=== PATIENT | male | born 1970 | race Caucasian/White ===

== ENCOUNTER 2017-05-25 17:46 | Emergency (ER) | payer BC, OTHER ==
[2017-05-25] MEDS ORDERED: Aspirin 81 MG Tab.Chew PO ONE (18:41)
[2017-05-25] MEDS ORDERED: Sodium Chloride 0.9% 1,000 ML IV ONE (18:41)
--- NOTE | 2017-05-25 18:47 | EDM.PDOC ---
ED HPI GENERAL MEDICAL PROBLEM - General Chief Complaint: General Stated Complaint: PT HAS HIGH BLOOD PRESSURE Time Seen by Provider: 05/25/17 18:35 Source of Information: Reports: Patient History Limitations: Reports: No Limitations - History of Present Illness INITIAL COMMENTS - FREE TEXT/NARRATIVE: HISTORY AND PHYSICAL: History of present illness: [Patient comes to the emergency room complaining of not feeling well. States that he was diagnosed with influenza one week ago. He followed up at the urgent care clinic this morning and was diagnosed with bronchitis. He was prescribed azithromycin, prednisone, albuterol inhaler. He has not started any of these medications yet. This afternoon he started feeling strange and presented to the ER for evaluation. He describes a burning sensation in his left chest, some shortness of breath and difficulty breathing as well as continued cough and feeling feverish. He noticed that his blood pressure is a little higher than usual this afternoon. History of hypertension and hyperlipidemia. He has not missed any doses of his medications other than his evening dose of carvedilol. ] Review of systems: As per history of present illness and below otherwise all systems reviewed and negative. Past medical history: As per history of present illness and as reviewed below otherwise noncontributory. Surgical history: As per history of present illness and as reviewed below otherwise noncontributory. Social history: No reported history of drug or alcohol abuse. Family history: As per history of present illness and as reviewed below otherwise noncontributory. Physical exam: Gen.: Well-developed well-nourished male in no acute distress. Vital signs are reviewed by me HEENT: Atraumatic, normocephalic. Oral mucous membranes are pink and moist. Throat is clear. Neck supple no lymphadenopathy. Lungs: Clear to auscultation, breath sounds equal bilaterally. Heart: S1S2, regular rate and rhythm., negative for clicks, rubs, or JVD. Abdomen: Soft, nondistended, nontender. Pelvis: Stable nontender. Genitourinary: Deferred. Rectal: Deferred. Extremities: Atraumatic, no swelling or cyanosis to feet or lower legs. Neurovascular unremarkable. Neuro: Awake, alert, oriented. Motor and sensory unremarkable throughout. Exam nonfocal. Diagnostics: [CBC, CMP, troponin, PT/INR/PTT, EKG, chest x-ray] Therapeutics: [Aspirin 324 mg by mouth, Levaquin 750 mg IV, clonidine 0.1 mg by mouth] Impression: [bronchitis] Plan: [Discussed with patient that his lab results, EKG and chest x-ray are completely normal. he is given Levaquin 750 mg the ER since he has not started his oral antibiotic yet. Clonidine given in ER. Blood pressure decreased modestly. Patient will be discharged home with strict return precautions reviewed. Take evening dose of carvedilol when you get home. Start antibiotics tomorrow. Referral given to establish with local PCP. Definitive disposition and diagnosis as appropriate pending reevaluation and review of above. 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 - Related Data Allergies Allergy/AdvReac Type Severity Reaction Status Date / Time No Known Allergies Allergy Verified 05/20/14 18:49 Home Meds: Home Meds Carvedilol 6.25 mg PO BID 05/25/17 [History] atorvaSTATin [Lipitor] 10 mg PO DAILY 05/25/17 [History] Past Medical History - Past Health History Medical/Surgical History: Denies Medical/Surgical History Cardiovascular History: Reports: High Cholesterol, Hypertension - Infectious Disease History Infectious Disease History: Reports: Chicken Pox, Measles, Mumps Social & Family History - Family History Family Medical History: Noncontributory - Tobacco Use Smoking Status *Q: Former Smoker Years of Tobacco use: 25 Used Tobacco, but Quit: Yes Month Tobacco Last Used: 2008 Second Hand Smoke Exposure: No - Caffeine Use Caffeine Use: Reports: Coffee - Alcohol Use Days Per Week of Alcohol Use: 4 Number of Drinks Per Day: 6 Total Drinks Per Week: 24 - Recreational Drug Use Recreational Drug Use: No ED ROS GENERAL - Review of Systems Review Of Systems: ROS reveals no pertinent complaints other than HPI. ED EXAM, GENERAL - Physical Exam Exam: See Below Course - Vital Signs Last Recorded V/S: Last Vital Signs Temp 98 F 05/25/17 19:25 Pulse 93 05/25/17 21:31 Resp 18 05/25/17 21:31 BP 139/105 H 05/25/17 21:31 Pulse Ox 96 05/25/17 21:31 - Orders/Labs/Meds Orders: Active Orders 24 hr Category Date Time Status EKG Documentation Completion [RC] STAT Care 05/25/17 18:26 Active Chest 2V [CR] Stat Exams 05/25/17 18:41 Taken Levofloxacin/Dextrose 5%-Water [Levaquin in D5W 750 MG/ Med 05/25/17 20:19 Active 150 ML] 750 mg Premix Bag 1 bag IV ONETIME Medication Orders Levofloxacin/Dextrose 750 mg/ (Premix) 150 mls @ 100 mls/hr IV ONETIME ONE Stop: 05/25/17 21:48 Last Admin: 05/25/17 20:34 Dose: 100 mls/hr Labs: Laboratory Tests 05/25/17 05/25/17 05/25/17 Range/Units 18:53 18:53 18:53 WBC 6.31 (4.0-11.0) K/uL RBC 5.58 (4.50-5.90) M/uL Hgb 18.6 H (13.0-17.0) g/dL Hct 49.8 (38.0-50.0) % MCV 89.2 (80.0-98.0) fL MCH 33.3 H (27.0-32.0) pg MCHC 37.3 H (31.0-37.0) g/dL RDW Std Deviation 40.3 (28.0-62.0) fl RDW Coeff of Shaquille 13 (11.0-15.0) % Plt Count 87 L (150-400) K/uL MPV 10.60 (7.40-12.00) fL Neut % (Auto) 66.4 (48.0-80.0) % Lymph % (Auto) 20.0 (16.0-40.0) % [place] % (Auto) 13.2 (0.0-15.0) % Eos % (Auto) 0.2 (0.0-7.0) % Baso % (Auto) 0.2 (0.0-1.5) % Neut # (Auto) 4.2 (1.4-5.7) K/uL Lymph # (Auto) 1.3 (0.6-2.4) K/uL [place] # (Auto) 0.8 (0.0-0.8) K/uL Eos # (Auto) 0.0 (0.0-0.7) K/uL Baso # (Auto) 0.0 (0.0-0.1) K/uL Nucleated RBC % 0.0 /100WBC Nucleated RBCs # 0 K/uL INR 1.00 (0.86-1.11) Sodium 138 (136-146) mmol/L Potassium 4.0 (3.5-5.1) mmol/L Chloride 100 (98-110) mmol/L Carbon Dioxide 24 (21-31) mmol/L BUN 12 (6.0-23.0) mg/dL Creatinine 0.8 (0.6-1.5) mg/dL Est Cr Clr Drug Dosing 109.25 mL/min Estimated GFR (MDRD) > 60.0 ml/min Glucose 102 (60-110) mg/dL Calcium 9.8 (8.8-10.8) mg/dL Total Bilirubin 1.5 (0.1-1.5) mg/dL AST 56 H (5-40) IU/L ALT 68 H (8-54) IU/L Alkaline Phosphatase 98 (40-150) Troponin I < 0.10 (0.0-0.29) NG/ML Total Protein 6.8 (6.0-8.0) g/dL Albumin 4.1 (3.5-5.0) g/dL Globulin 2.7 (2.0-3.5) g/dL Albumin/Globulin Ratio 1.5 (1.3-2.8) Urine Color Urine Appearance Urine pH (5.0-8.0) Ur Specific [place] (1.001-1.035) Urine Protein (NEGATIVE) mg/dL Urine Glucose (UA) (NEGATIVE) mg/dL Urine Ketones (NEGATIVE) mg/dL Urine Occult Blood (NEGATIVE) Urine Nitrite (NEGATIVE) Urine Bilirubin (NEGATIVE) Urine Ictotest Urine Urobilinogen (<2.0) EU/dL Ur Leukocyte Esterase (NEGATIVE) Urine RBC (0-2/HPF) Urine WBC (0-5/HPF) Ur Epithelial Cells (NONE-FEW) Urine Bacteria (NEGATIVE) 05/25/17 Range/Units 19:55 WBC (4.0-11.0) K/uL RBC (4.50-5.90) M/uL Hgb (13.0-17.0) g/dL Hct (38.0-50.0) % MCV (80.0-98.0) fL MCH (27.0-32.0) pg MCHC (31.0-37.0) g/dL RDW Std Deviation (28.0-62.0) fl RDW Coeff of Shaquille (11.0-15.0) % Plt Count (150-400) K/uL MPV (7.40-12.00) fL Neut % (Auto) (48.0-80.0) % Lymph % (Auto) (16.0-40.0) % [place] % (Auto) (0.0-15.0) % Eos % (Auto) (0.0-7.0) % Baso % (Auto) (0.0-1.5) % Neut # (Auto) (1.4-5.7) K/uL Lymph # (Auto) (0.6-2.4) K/uL [place] # (Auto) (0.0-0.8) K/uL Eos # (Auto) (0.0-0.7) K/uL Baso # (Auto) (0.0-0.1) K/uL Nucleated RBC % /100WBC Nucleated RBCs # K/uL INR (0.86-1.11) Sodium (136-146) mmol/L Potassium (3.5-5.1) mmol/L Chloride (98-110) mmol/L Carbon Dioxide (21-31) mmol/L BUN (6.0-23.0) mg/dL Creatinine (0.6-1.5) mg/dL Est Cr Clr Drug Dosing mL/min Estimated GFR (MDRD) ml/min Glucose (60-110) mg/dL Calcium (8.8-10.8) mg/dL Total Bilirubin (0.1-1.5) mg/dL AST (5-40) IU/L ALT (8-54) IU/L Alkaline Phosphatase (40-150) Troponin I (0.0-0.29) NG/ML Total Protein (6.0-8.0) g/dL Albumin (3.5-5.0) g/dL Globulin (2.0-3.5) g/dL Albumin/Globulin Ratio (1.3-2.8) Urine Color YELLOW Urine Appearance CLEAR Urine pH 7.5 (5.0-8.0) Ur Specific [place] 1.010 (1.001-1.035) Urine Protein TRACE (NEGATIVE) mg/dL Urine Glucose (UA) NEGATIVE (NEGATIVE) mg/dL Urine Ketones 40 H (NEGATIVE) mg/dL Urine Occult Blood NEGATIVE (NEGATIVE) Urine Nitrite NEGATIVE (NEGATIVE) Urine Bilirubin SMALL H (NEGATIVE) Urine Ictotest NEGATIVE Urine Urobilinogen 0.2 (<2.0) EU/dL Ur Leukocyte Esterase NEGATIVE (NEGATIVE) Urine RBC 0-1 (0-2/HPF) Urine WBC 0-2 (0-5/HPF) Ur Epithelial Cells RARE (NONE-FEW) Urine Bacteria FEW (NEGATIVE) Meds: Medications Generic Name Dose Route Start Last Admin Trade Name Freq PRN Reason Stop Dose Admin Levofloxacin/Dextrose 750 mg/ 150 mls @ 100 mls/hr 05/25/17 20:19 05/25/17 20 :34 Premix IV 05/25/17 21:48 100 mls/hr ONETIME ONE Administration Discontinued Medications Generic Name Dose Route Start Last Admin Trade Name Freq PRN Reason Stop Dose Admin Aspirin 324 mg 05/25/17 18:41 05/25/17 18:49 Aspirin PO 05/25/17 18:42 324 mg ONETIME ONE Administration Clonidine HCl 0.1 mg 05/25/17 20:19 05/25/17 20:33 Catapres PO 05/25/17 20:20 0.1 mg ONETIME ONE Administration Sodium Chloride 1,000 mls @ 999 mls/hr 05/25/17 18:41 05/25/17 18:49 Normal Saline IV 05/25/17 19:41 999 mls/hr .Bolus ONE Administration Departure - Departure Time of Disposition: 21:30 Disposition: Home, Self-Care 01 Condition: Good Clinical Impression: Bronchitis, Hypertension - Discharge Information Referrals: PCP,None [Primary Care Provider] - Nathen Nicole MD [Resident] - Forms: ED Department Discharge Additional Instructions: The following information is given to patients seen in the emergency department who are being discharged to home. This information is to outline your options for follow-up care. We provide all patients seen in our emergency department with a follow-up referral. The need for follow-up, as well as the timing and circumstances, are variable depending upon the specifics of your emergency department visit. If you don't have a primary care physician on staff, we will provide you with a referral. We always advise you to contact your personal physician following an emergency department visit to inform them of the circumstance of the visit and for follow-up with them and/or the need for any referrals to a consulting specialist. The emergency department will also refer you to a specialist when appropriate. This referral assures that you have the opportunity for follow-up care with a specialist. All of these measure are taken in an effort to provide you with optimal care, which includes your follow-up. Under all circumstances we always encourage you to contact your private physician who remains a resource for coordinating your care. When calling for follow-up care, please make the office aware that this follow-up is from your recent emergency room visit. If for any reason you are refused follow-up, please contact the [facility] emergency department at and asked to speak to the emergency department charge nurse. [facility] [address] [place] [id number] Follow-up at the clinic listed above in 48-72 hours to follow-up on your blood pressure and bronchitis. Call tomorrow to schedule this appointment. Alternate Tylenol with ibuprofen as needed for discomfort. Take medications as prescribed. Take your second dose of BP medication when you get home tonight. Return to ER as needed as discussed. - My Orders Last 24 Hours: My Active Orders 05/25/17 18:26 EKG Documentation Completion [RC] STAT 05/25/17 18:41 Chest 2V [CR] Stat 05/25/17 20:19 Levofloxacin/Dextrose 5%-Water [Levaquin in D5W 750 MG/150 ML] 750 mg Premix Bag 1 bag IV ONETIME - Assessment/Plan Last 24 Hours: My Active Orders 05/25/17 18:26 EKG Documentation Completion [RC] STAT 05/25/17 18:41 Chest 2V [CR] Stat 05/25/17 20:19 Levofloxacin/Dextrose 5%-Water [Levaquin in D5W 750 MG/150 ML] 750 mg Premix Bag 1 bag IV ONETIME
[2017-05-25 19:22] LABS: CHLORIDE,CL 100 mmol/L (98-110); SODIUM,NA 138 mmol/L (136-146)
[2017-05-25] MEDS ORDERED: cloNIDine 0.1 MG Tab PO ONE (20:19)
[2017-05-25] MEDS ORDERED: Levofloxacin/Dextrose 5%-Water 750 MG in Premix Bag 1 BAG IV ONE (20:19)
[2017-05-25 22:30] VITALS: BP 140/99
--- NOTE | 2017-05-26 14:47 | CR ---
EXAM DATE: 05/25/17 PATIENT'S AGE: 46 Patient: SRIKANTH YEPEZ Facility: [place], [place] Site . Site : [id number] Study: XRay Chest [id number] 7:26:18 PM Ordering Physician: Doctor Cooper Final Report: INDICATIONS: Cough x1 week. High blood pressure. TECHNIQUE: Chest 2 view. COMPARISON: None FINDINGS: No pneumothorax or pleural effusion. Lungs are clear. Cardiac and mediastinal contours are within normal limits. Upper abdomen and osseous structures show no acute abnormality. IMPRESSION: No evidence of acute cardiopulmonary disease. Dictated by Aden Stanley MD @ 05/25/2017 7:58:49 PM Dictated by: Aden Stanley MD @ 05/25/2017 19:58:59 (Electronic Signature) Report Signed by Proxy. [facility]
== END 2017-05-25 22:08 | disposition home or self-care (01) ==
LOC: MW.ED 17:46
DX: J40 Bronchitis, not specified as acute or chronic (principal); I10 Essential (primary) hypertension; E78.00 Pure hypercholesterolemia, unspecified; Z87.891 Personal history of nicotine dependence; Z79.899 Other long term (current) drug therapy
CPT/HCPCS: 36415; 71046; 80053; 81001; 84484; 85025; 85610; 93005; 96372; 99284; A9270; J1956; J7040

== ENCOUNTER 2017-10-02 13:46 | Emergency (ER) | payer OTHER ==
[2017-10-02] MEDS ORDERED: Ketorolac 60 MG/2 ML SDV IM ONE (14:19)
--- NOTE | 2017-10-02 14:27 | EDM.PDOC ---
ED HPI GENERAL MEDICAL PROBLEM - General Chief Complaint: Back Pain or Injury Stated Complaint: BACK PAIN Time Seen by Provider: 10/02/17 14:03 - History of Present Illness INITIAL COMMENTS - FREE TEXT/NARRATIVE: HISTORY AND PHYSICAL: History of present illness: The patient is a 47-year-old male with a history of hypertension and presents with complaints of back pain that started 4 days ago when he picked up a very low weight, 10 pounds, object and turned in a funny way and felt immediate lumbar back pain. The patient tells me at the little bit more on the left side but it is bilateral and he has had kidney stones in the past but this does not feel like a kidney stone. The patient says that he has no systemic complaints of dysuria hematuria flank pain abdominal pain nausea vomiting chest pain or shortness of breath. He has no weakness numbness or tingling in his lower extremities. He has no bowel or bladder disturbances. The pain does not radiate to his legs or to his butt. Patient has taken Advil and Aleve only for pain and has seen the chiropractor the last 4 days with some relief of the pain but it is still a very high level. He has missed work the last 2 days because of the discomfort and he says position changes are much worse than staying still. He feels most comfortable standing. He says if he moves or turns a certain way the pain suddenly shoot up in intensity. The patient lives in [place] but is here working and has no plans to go back home until March. He has no local clinic follow-up. Patient denies any falls or direct trauma to his back. Review of systems: As per history of present illness and below otherwise all systems reviewed and negative. Past medical history: As per history of present illness and as reviewed below otherwise noncontributory. Surgical history: As per history of present illness and as reviewed below otherwise noncontributory. Social history: No reported history of drug or alcohol abuse. Family history: As per history of present illness and as reviewed below otherwise noncontributory. Physical exam: General: Well-developed well-nourished overweight man was nontoxic and looks uncomfortable with position changes in the ED and is most comfortable standing up. He ambulates easily without any distress. Vital signs are noted by me. HEENT: Atraumatic, normocephalic, negative for conjunctival pallor or scleral icterus, mucous membranes moist, throat clear, neck supple, nontender, trachea midline. Lungs: Clear to auscultation, breath sounds equal bilaterally, chest nontender. Heart: S1S2, regular, negative for clicks, rubs, or JVD. Abdomen: Soft, nondistended, nontender. Negative for masses or hepatosplenomegaly. Negative for costovertebral tenderness. Pelvis: Stable nontender. Genitourinary: Deferred. Rectal: Deferred. Extremities: Atraumatic, negative for cords or calf pain. Neurovascular unremarkable. Full range of motion without defects or deficits Neuro: Awake, alert, oriented. Cranial nerves II through XII unremarkable. Cerebellum unremarkable. Motor and sensory unremarkable throughout. Exam nonfocal. Patellar reflexes are +2/4 and brisk bilaterally , dorsi and plantar flexion is intact 5/5 inclusive of the great toe, inversion in the first of the feet is intact Back: There are no midline step-offs tenderness or defects of the thoracic or lumbar spine but just off to the left and right in the lumbar paraspinal region there is some tenderness but does not reproduce the pain exactly. 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 He states understanding and we will discuss pain management for home after the CT scan. Discussed with the patient CT scan findings and the possibility that he will need an MRI going forward, but there is no indication for that emergently today. We will manage him at home with anti-inflammatories and muscle relaxers pain management as well as a burst of steroids and I've advised him to follow- up in our clinic on Thursday as well as return here if he feels that his symptoms are even evolving. He reiterated again that he wants to drive himself home and would rather fill prescriptions for pain medications and go. Impression: Lumbar back pain Definitive disposition and diagnosis as appropriate pending reevaluation and review of above. lower back Pain Score (Numeric/FACES): 10 - Related Data Allergies Allergy/AdvReac Type Severity Reaction Status Date / Time No Known Allergies Allergy Verified 10/02/17 13:54 Home Meds: Home Meds Carvedilol 6.25 mg PO BID 05/25/17 [History] atorvaSTATin [Lipitor] 10 mg PO DAILY 05/25/17 [History] Past Medical History - Past Health History Medical/Surgical History: Denies Medical/Surgical History HEENT History: Reports: None Cardiovascular History: Reports: High Cholesterol, Other (See Below) Other Cardiovascular History: pre-hypertension Respiratory History: Reports: None Gastrointestinal History: Reports: None Genitourinary History: Reports: None Musculoskeletal History: Reports: None Neurological History: Reports: None Psychiatric History: Reports: None Endocrine/Metabolic History: Reports: None Hematologic History: Reports: None Immunologic History: Reports: None Oncologic (Cancer) History: Reports: None Dermatologic History: Reports: None - Infectious Disease History Infectious Disease History: Reports: Chicken Pox, Measles, Mumps - Past Surgical History Head Surgeries/Procedures: Reports: None HEENT Surgical History: Reports: None Respiratory Surgical History: Reports: None GI Surgical History: Reports: None Male Surgical History: Reports: None Endocrine Surgical History: Reports: None Neurological Surgical History: Reports: None Musculoskeletal Surgical History: Reports: None Oncologic Surgical History: Reports: None Dermatological Surgical History: Reports: None Social & Family History - Family History Family Medical History: Noncontributory - Tobacco Use Smoking Status *Q: Never Smoker - Caffeine Use Caffeine Use: Reports: Soda - Recreational Drug Use Recreational Drug Use: No ED ROS GENERAL - Review of Systems Review Of Systems: ROS reveals no pertinent complaints other than HPI. ED EXAM, GENERAL - Physical Exam Exam: See Below (See dictation) Course - Vital Signs Last Recorded V/S: Last Vital Signs Temp 36.3 C 10/02/17 13:56 Pulse 83 10/02/17 13:56 Resp 18 10/02/17 13:56 BP Pulse Ox 96 10/02/17 13:56 - Orders/Labs/Meds Meds: Medications Discontinued Medications Generic Name Dose Route Start Last Admin Trade Name Freq PRN Reason Stop Dose Admin Ketorolac Tromethamine 60 mg 10/02/17 14:19 10/02/17 14:24 Toradol IM 10/02/17 14:20 60 mg ONETIME ONE Administration Prednisone 60 mg 10/02/17 15:05 Prednisone PO 10/02/17 15:06 ONETIME ONE Departure - Departure Time of Disposition: 15:07 Disposition: Home, Self-Care 01 Condition: Fair Clinical Impression: Lumbar back pain - Discharge Information Referrals: PCP,None [Primary Care Provider] - Forms: ED Department Discharge Additional Instructions: The following information is given to patients seen in the emergency department who are being discharged to home. This information is to outline your options for follow-up care. We provide all patients seen in our emergency department with a follow-up referral. The need for follow-up, as well as the timing and circumstances, are variable depending upon the specifics of your emergency department visit. If you don't have a primary care physician on staff, we will provide you with a referral. We always advise you to contact your personal physician following an emergency department visit to inform them of the circumstance of the visit and for follow-up with them and/or the need for any referrals to a consulting specialist. The emergency department will also refer you to a specialist when appropriate. This referral assures that you have the opportunity for followup care with a specialist. All of these measure are taken in an effort to provide you with optimal care, which includes your followup. Under all circumstances we always encourage you to contact your private physician who remains a resource for coordinating your care. When calling for followup care, please make the office aware that this follow-up is from your recent emergency room visit. If for any reason you are refused follow-up, please contact the [facility] emergency department at and ask to speak to the emergency department charge nurse. [facility] Primary care- [place] [address] Please use medications as prescribed and needed and use ice or heat to areas of discomfort. Return to ER as needed and as discussed. Please call the clinic and schedule a follow-up appointment as we discussed to reevaluate your care plan.
--- NOTE | 2017-10-02 14:57 | CT ---
EXAMINATION: CT lumbar spine HISTORY: Pain COMPARISON: None TECHNIQUE: Axial CT images obtained through the lumbar spine without contrast. Coronal and sagittal r econstructions obtained. FINDINGS: The lumbar vertebral alignment is normal. The vertebral body heights and disc spaces appear well-maintained. There is no fracture or acute osseous abnormality. Bone mineralization is normal. T he SI joints are symmetric. Minimal anterior SI joint osteophytes noted. Mild marginal osteophytes no tracy within the lumbar spine. Visualized retroperitoneal structures appear normal. IMPRESSION: 1. Minimal degenerative changes without acute findings.
[2017-10-02] MEDS ORDERED: predniSONE 20 MG Tab PO ONE (15:05)
[2017-10-02 15:42] VITALS: BP 140/99
== END 2017-10-02 15:40 | disposition home or self-care (01) ==
LOC: MW.ED 13:46
DX: M54.5 Low back pain (principal); E78.00 Pure hypercholesterolemia, unspecified; Z79.899 Other long term (current) drug therapy
CPT/HCPCS: 72131; 96372; 99283; A9270; J1885